=== PATIENT | female | born 1965 | race Caucasian/White ===

== ENCOUNTER 2016-09-25 12:09 | Day surgery (SDC) | payer MEDICAID ==
[2016-09-25] MEDS ORDERED: DIAZEPAM 5 MG TAB PO ONE (12:13)
[2016-09-25] MEDS ORDERED: NS 1,000 ML IV ONE (12:13)
[2016-09-25] MEDS ORDERED: FAMOTIDINE 20 MG TAB PO ONE (12:13)
[2016-09-25] MEDS ORDERED: diphenhydrAMINE 25 MG CAP PO ONE ×2 (12:13→12:21)
[2016-09-25] MEDS ORDERED: ASPIRIN EC 325 MG TAB PO ONE ×2 (12:13→12:21)
[2016-09-25] MEDS ORDERED: FAMOTIDINE 20 MG TAB ONE (12:21)
--- NOTE | 2016-09-25 12:26 | CPEKG ---
Heart Rate: 94 RR Interval: 638 P-R Interval: 176 QRSD Interval: 94 QT Interval: 344 QTC Interval: 431 P Foley: 68 QRS Foley: 15 T Wave Foley: 102 EKG Severity - ABNORMAL ECG - EKG Impression: SINUS RHYTHM EKG Impression: NONSPECIFIC T ABNORMALITIES, DIFFUSE LEADS Electronically Signed By: Mohamud De Oliveira 25-Sep-2016 16:12:34
[2016-09-25 12:46] LABS: % IMMATURE GRANULYOCYTES 0.2 % (0.0-1.1); ABSOLUTE IMMATURE GRANULOCYTES 0.01 10^3/uL (0.00-0.10); ADD DIFF? NO; ADD MORPH? NO; ADD SCAN? NO; ATYPICAL LYMPHOCYTE FLAG 20 (0-99); FRAGMENT RBC FLAG 10 (0-99); HEMATOCRIT 41.9 % (38.0-47.0); HEMOGLOBIN 14.6 g/dL (12.6-16.3); LEFT SHIFT FLG 0 (0-99); LIPEMIA HEMOLYSIS FLAG 90 (0-99); MEAN CELL HEMOGLOBIN 29.4 pg (27.9-34.1); MEAN CELL HEMOGLOBIN CONCENTR. 34.8 g/dL (32.4-36.7); MEAN CELL VOLUME 84.3 fL (81.5-99.8); PLATELET CLUMPS FLAG 20 (0-99); PLATELET COUNT 201 10^3/uL (150-400); RED BLOOD CELL COUNT 4.97 10^6/uL (4.18-5.33); RED CELL DISTRIBUTION WIDTH 12.8 % (11.5-15.2)
[2016-09-25 12:53] LABS: INR 0.99 (0.83-1.16)
[2016-09-25] MEDS ORDERED: LIDOCAINE 1% 300 MG/30 ML SDV ONE (12:53)
[2016-09-25] MEDS ORDERED: fentaNYL 100 MCG/2 ML INJ ONE (12:54)
[2016-09-25] MEDS ORDERED: MIDAZOLAM 2 MG/2 ML VIAL ONE ×2 (12:54→13:19)
[2016-09-25] MEDS ORDERED: IOPAMIDOL (ISOVUE-370) 150 ML BTL IV ONE (12:55)
[2016-09-25 13:01] LABS: ANION GAP 12 mEq/L (8-16); CALCIUM 9.8 mg/dL (8.5-10.4); CARBON DIOXIDE 24 mEq/l (22-31); CHLORIDE 107 mEq/L (97-110); CHOLESTEROL 198 mg/dL (140-200); CHOLESTEROL/HDL RATIO 1.96 RATIO (1.00-4.44); GLOMERULAR FILTRATION RATE 59; GLUCOSE 78 mg/dL (70-100); HIGH DENSITY LIPOPROTEIN 101 mg/dL (40-95); LDL/HDL RATIO 0.85 RATIO (1.00-3.22); LOW DENSITY LIPOPROTEIN 86 mg/dL (70-100); MAGNESIUM 1.7 mg/dL (1.6-2.3); NON-HIGH DENSITY LIPOPROTEIN 97 mg/dL (90-129); POTASSIUM 3.9 mEq/L (3.5-5.2); SODIUM 143 mEq/L (134-144); TRIGLYCERIDE 59 mg/dL (35-135); VERY LOW DENSITY LIPOPROTEINS 11 mg/dL (8-25)
[2016-09-25] MEDS ORDERED: ONDANSETRON 4 MG/2 ML VIAL ONE (14:23)
[2016-09-25] MEDS ORDERED: HYDROCODONE/APAP 5/325 TAB PO PRN (14:37)
[2016-09-25] MEDS ORDERED: NITROGLYCERIN 0.4 MG BTL SL PRN (14:37)
[2016-09-25] MEDS ORDERED: ATROPINE SULFATE 1 MG/10 ML SYR IVP PRN (14:37)
[2016-09-25] MEDS ORDERED: ONDANSETRON 4 MG/2 ML VIAL IVP PRN (14:37)
[2016-09-25] MEDS ORDERED: OXYCODONE/APAP 5/325 TAB PO PRN (14:37)
--- NOTE | 2016-09-25 14:42 | PDDXCAT ---
Diagnostic Cath Note - . Date: 09/25/16 Pipe Stem Sawyer: Lalitha Indication: CCC Class III and IV angina on medical treatment - Procedure Access: right groin Procedure: left heart catheterization, coronary angiography, left ventriculogram - Materials Left Heart Cath size: 6F Left Heart Cath materials: standard multipack (JL4, JR4, pigtail) - Findings-Left Heart Catheterization LM: short, bifurcating into the LAD and LCX vessels. No luminal irregularities were noted. LAD: Medium sized vessel with moderate, distal tortuosity. There was a mid LAD diagonal (principal) without luminal irregularities noted, but once again, tortuosity. LCX: Medium sized vessel with very small proximal OM and a large (principal) OM2 in the mid vessel. No luminal irregularities in the major vessels were noted. RCA: Medium to small diameter vessel. Dominant vessel with supply to the PDA. No luminal irregularities were noted. EDP: 18 mm Hg LVEF: 60% Wall motion: normal Complications: none Estimated blood loss: <50ml Closure method: manual pressure Assessment: 51 y/o female with complaints of chest pains. No luminal irregularities were noted to the major vessels. There was a very small OM1 with ostial disease noted - and this may contribute to some of the symptoms noted. This was not an intervenable lesion given diameter of the vessel (very small). Normal LVEF was noted with normal wall motion. Plan: Continued medical management is recommended. Would have the patient seen in the outpatient setting in one week for follow up. Intervention: none
== END 2016-09-25 18:00 | disposition home or self-care (01) ==
LOC: FCATH 12:09
PROVIDERS: ATTEND Internal Medicine Cardiovascular Disease
DX: I20.9 Angina pectoris, unspecified (principal); R94.31 Abnormal electrocardiogram [ECG] [EKG]
CPT/HCPCS: J1644; J2250; J2405; J3010; Q9967

== ENCOUNTER 2016-09-26 08:18 | Emergency (ER) | payer MEDICAID ==
--- NOTE | 2016-09-26 08:33 | EDPHY ---
H & P Stated Complaint: Agram yesterday with kidney pain Time Seen by Provider: 09/26/16 08:32 HPI/ROS: CHIEF COMPLAINT: Right flank pain following angiogram HISTORY OF PRESENT ILLNESS: The patient presents to the ED with right flank pain following angiogram yesterday. The patient contacted her beamer helper who recommended she come to the ED for evaluation of retroperitoneal hematoma. The patient reportedly has been using ibuprofen for intermittent chest pain over the past several weeks. The patient's angiogram yesterday demonstrated no evidence of significant coronary artery disease. The patient denies any hematuria. She denies focal numbness or weakness. The patient reports moderate pain in her right flank. The patient denies nausea, vomiting or fever. She denies dysuria. She denies additional complaints. REVIEW OF SYSTEMS: A comprehensive 10 point review of systems is otherwise negative aside from elements mentioned in the history of present illness. Source: Patient - Personal History LMP (Females 10-55): 22-28 Days Ago Current Tetanus/Diphtheria Vaccine: Yes Current Tetanus Diphtheria and Acellular Pertussis (TDAP): Yes - Medical/Surgical History Hx Asthma: Yes Hx Chronic Respiratory Disease: No Hx Diabetes: No Hx Cardiac Disease: No Hx Renal Disease: No Hx Cirrhosis: No Hx Alcoholism: No Hx HIV/AIDS: No Hx Splenectomy or Spleen Trauma: No Other PMH: asthma, depression, htn - Social History Smoking Status: Never smoked - Physical Exam Exam: General Appearance: Alert, no distress Eyes: Pupils equal and round no pallor or injection ENT, Mouth: Mucous membranes moist Respiratory: There are no retractions, lungs are clear to auscultation Cardiovascular: Regular rate and rhythm Gastrointestinal: Abdomen is soft and nontender, no masses, bowel sounds normal Neurological: A&O, normal motor function, normal sensory exam, normal cranial nerves Skin: Warm and dry, no rashes Musculoskeletal: Neck is supple nontender, tenderness to palpation throughout the lumbar sacral and thoracic paraspinal muscles. Patient has exquisite tenderness to even the lightest skin touch. Extremities: symmetrical, full range of motion Constitutional: Initial Vital Signs Temperature (C) 36.3 C 09/26/16 08:22 Heart Rate 90 09/26/16 08:22 Respiratory Rate 16 09/26/16 08:22 Blood Pressure 128/88 H 09/26/16 08:22 O2 Sat (%) 97 09/26/16 08:22 O2 Delivery Mode Room Air Allergies/Adverse Reactions: midazolam [From Versed] Allergy (Severe, Verified 09/25/16 12:41) diazepam [From Valium] Allergy (Verified 09/25/16 12:42) propofol Allergy (Verified 09/25/16 12:42) Home Medications: Medication Instructions Recorded LORAZEPAM 0.5 mg PO PRN PRN 09/25/16 Lisinopril/Hctz 20/12.5MG 20 mg PO DAILY 09/25/16 Ritalin 20mg (*) 20 mg PO DAILY 09/25/16 Wellbutrin 150mg XL 150 mg PO BID 09/25/16 Medical Decision Making - Diagnostics Imaging Results: Imaging Impressions Abdomen CT 09/26/16 09:42 Impression: 1. Mild stranding in the right groin consistent with expected hemorrhage from recent cardiac catheterization, with no significant hematoma and no retroperitoneal hemorrhage. 2. Mild degenerative change in lumbar spine. 3. Additional findings as above. Findings discussed with Darwin Zapien on September 26, 2016 at 11:05 a.m. ED Course/Re-evaluation: The patient presents to the ED with complaints of acute flank pain following an angiogram. The patient has tenderness to palpation in her right flank throughout the posterior thorax and lower lumbar area. There is no evidence of a rash. The patient's laboratory studies including creatinine and CBC are within normal limits. The patient was taken for CT scan of the abdomen pelvis with IV contrast to evaluate for retroperitoneal hemorrhage. The results of that study was normal. The patient's urine dipstick demonstrates no evidence of an infection or hematuria. At this point time I do feel the patient can safely be discharged home. She did undergo 3 serial examinations in the ED by myself over a 3 hour period. Differential Diagnosis: Differential diagnosis considered includes retroperitoneal hemorrhage, renal failure, nephrolithiasis, pyelonephritis, myofascial strain - Data Points Laboratory Results: Laboratory Results 09/26/16 08:50 09/26/16 08:50 09/26/16 09/26/16 08:50 08:50 WBC 8.51 10^3/uL 10^3/uL (3.80-9.50) RBC 5.02 10^6/uL 10^6/uL (4.18-5.33) Hgb 14.9 g/dL g/dL (12.6-16.3) Hct 43.2 % % (38.0-47.0) MCV 86.1 fL fL (81.5-99.8) MCH 29.7 pg pg (27.9-34.1) MCHC 34.5 g/dL g/dL (32.4-36.7) RDW 13.0 % % (11.5-15.2) Plt Count 191 10^3/uL 10^3/uL (150-400) MPV 10.8 fL fL (8.7-11.7) Neut % (Auto) 77.7 % H % (39.3-74.2) Lymph % (Auto) 12.7 % L % (15.0-45.0) [place] % (Auto) 7.2 % % (4.5-13.0) Eos % (Auto) 1.8 % % (0.6-7.6) Baso % (Auto) 0.2 % L % (0.3-1.7) Nucleat RBC Rel Count 0.0 % % (0.0-0.2) Absolute Neuts (auto) 6.62 10^3/uL H 10^3/uL (1.70-6.50) Absolute Lymphs (auto) 1.08 10^3/uL 10^3/uL (1.00-3.00) Absolute Monos (auto) 0.61 10^3/uL 10^3/uL (0.30-0.80) Absolute Eos (auto) 0.15 10^3/uL 10^3/uL (0.03-0.40) Absolute Basos (auto) 0.02 10^3/uL 10^3/uL (0.02-0.10) Absolute Nucleated RBC 0.00 10^3/uL 10^3/uL (0-0.01) Immature Gran % 0.4 % % (0.0-1.1) Immature Gran # 0.03 10^3/uL 10^3/uL (0.00-0.10) Sodium 138 mEq/L mEq/L (134-144) Potassium 4.2 mEq/L mEq/L (3.5-5.2) Chloride 104 mEq/L mEq/L (97-110) Carbon Dioxide 25 mEq/l mEq/l (22-31) Anion Gap 9 mEq/L mEq/L (8-16) BUN 14 mg/dL mg/dL (7-23) Creatinine 0.8 mg/dL mg/dL (0.6-1.0) Estimated GFR > 60 Glucose 94 mg/dL mg/dL (70-100) Calcium 9.2 mg/dL mg/dL (8.5-10.4) Departure - Departure Disposition: Home, Routine, Self-Care Clinical Impression: Acute flank pain Condition: Good Instructions: Musculoskeletal Pain (ED) Additional Instructions: 1. Your CT scan, laboratory testing and workup in the emergency department demonstrates no evidence of a kidney problem, hemorrhage, renal failure or other serious condition. 2. Tylenol as needed for pain. 3. Please follow up as scheduled with your primary care provider. Referrals: WALDEMAR LOMAX [Other] - As per Instructions
[2016-09-26 09:13] LABS: % IMMATURE GRANULYOCYTES 0.4 % (0.0-1.1); ABSOLUTE IMMATURE GRANULOCYTES 0.03 10^3/uL (0.00-0.10); ADD DIFF? NO; ADD MORPH? NO; ADD SCAN? NO; ATYPICAL LYMPHOCYTE FLAG 0 (0-99); FRAGMENT RBC FLAG 0 (0-99); HEMATOCRIT 43.2 % (38.0-47.0); HEMOGLOBIN 14.9 g/dL (12.6-16.3); LEFT SHIFT FLG 10 (0-99); LIPEMIA HEMOLYSIS FLAG 90 (0-99); MEAN CELL HEMOGLOBIN 29.7 pg (27.9-34.1); MEAN CELL HEMOGLOBIN CONCENTR. 34.5 g/dL (32.4-36.7); MEAN CELL VOLUME 86.1 fL (81.5-99.8); MEAN PLATELET VOLUME 10.8 fL (8.7-11.7); PLATELET CLUMPS FLAG 10 (0-99); PLATELET COUNT 191 10^3/uL (150-400); RED BLOOD CELL COUNT 5.02 10^6/uL (4.18-5.33)
[2016-09-26 09:35] LABS: ANION GAP 9 mEq/L (8-16); CALCIUM 9.2 mg/dL (8.5-10.4); CARBON DIOXIDE 25 mEq/l (22-31); CHLORIDE 104 mEq/L (97-110); CREATININE 0.8 mg/dL (0.6-1.0); GLOMERULAR FILTRATION RATE > 60; GLUCOSE 94 mg/dL (70-100); POTASSIUM 4.2 mEq/L (3.5-5.2); SODIUM 138 mEq/L (134-144)
[2016-09-26] MEDS ORDERED: IOPAMIDOL (ISOVUE-300) 100 ML BTL ONE (10:11)
[2016-09-26 10:31] VITALS: O2SAT 99
[2016-09-26 11:52] VITALS: BP 105/76; PULSE 72; RESP 16; TEMP 99
== END 2016-09-26 11:50 | disposition home or self-care (01) ==
DX: R10.9 Unspecified abdominal pain (principal); I10 Essential (primary) hypertension; J45.909 Unspecified asthma, uncomplicated
CPT/HCPCS: Q9967

== ENCOUNTER 2018-05-29 10:35 | Emergency (ER) | payer MEDICAID, OTHER ==
--- NOTE | 2018-05-29 11:00 | EDPHY ---
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 She was seen at [facility] emergency department yesterday with negative ultrasound and x-ray. She is provided Ming wrap and crutches. She was given a prescription for [place] but states that she prefers not to take this due to the altered mentation. At the ER yesterday they did not have a working MRI at that time which she was told to get follow- up. She contacted orthopedics in next available follow-up was 1 month out. She comes to the emergency department complaining of continued pain and stability left knee, interested in MRI in order to expedite orthopedic follow- up care. PHYSICAL EXAM (Prior to examination, patient consented to physical exam, hands were washed and my usual and customary physical exam procedures followed) 1) GENERAL: Well-developed, well-nourished, alert and oriented. Appears to be in no acute distress. 2) HEAD: Normocephalic 3) HEENT: Pupils equal, round, reactive to light bilaterally. 4) LUNGS: Breathing comfortably. 5) MUSCULOSKELETAL: Exam of the left knee shows no soft tissue swelling. Focally tender to palpation left medial knee reproducible with palpation range of motion. No gross instability. . Compartments are soft. 6) SKIN: Intact 7) VASCULAR: DP,PT pulses and cap refill present and brisk distally DIFFERENTIAL DIAGNOSIS: in no particular order including but not limited to fracture, sprain, compartment syndrome, septic arthritis, DVT (Brittani Silva) Constitutional: Initial Vital Signs Temperature (C) 36.5 C 05/29/18 10:39 Heart Rate 76 05/29/18 10:39 Respiratory Rate 18 05/29/18 10:39 Blood Pressure 140/80 H 05/29/18 10:39 O2 Sat (%) 97 05/29/18 10:39 O2 Delivery Mode Room Air Allergies/Adverse Reactions: midazolam [From Versed] Allergy (Severe, Verified 09/25/16 12:41) acetaminophen [From Vicodin] Allergy (Verified 05/29/18 10:38) diazepam [From Valium] Allergy (Verified 09/25/16 12:42) hydrocodone [From Vicodin] Allergy (Verified 05/29/18 10:38) propofol Allergy (Verified 09/25/16 12:42) Home Medications: Medication Instructions Recorded LORAZEPAM 0.5 mg PO PRN PRN 09/25/16 Lisinopril/Hctz 20/12.5MG 20 mg PO DAILY 09/25/16 Ritalin 20mg (*) 20 mg PO DAILY 09/25/16 Wellbutrin 150mg XL 150 mg PO BID 09/25/16 MDM/Departure - MDM Procedures: Procedure: Splint A knee immobilizer splint was applied by ER technician helper instrument. After application of the splint I returned and re-examined the patient. The splint was adequately immobilizing the joint and distal to the splint the patient's circulation and sensation were intact. Patient shows no signs of compartment syndrome. Was given orthopedic precautions. Patient has her own pre-hospital crutches and I have observed her crutch walking with success. (Brittani Silva) ED Course/Re-evaluation: I did not see this patient while she was in the emergency department. However her care was discussed with the PA while the patient was in the department. I agree with treatment plan and management (Mohamud Easley) 10:57 a.m.: I have evaluated this patient. She has focal tenderness to palpation left medial knee. She reports negative ultrasound and negative x-ray performed yesterday at [facility]. She informs me that she is a single mother and has a window of time today (Thursday) where she can be evaluated and have an MRI. I have agreed to perform an MRI of the left knee today for acute left knee pain with instability.. She has been informed however for that her MRI may not be fully her insurance company and that the MRI may not be read today by musculoskeletal fellowship trained radiologist. She is agreeable with this and wishes to proceed. She will plan on following up with JULIA Lassiter at the [facility] on Thursday and we will get the MRI today to expedite her orthopedic follow-up care. 12:02 p.m.: Patient has back from MRI. At this time I think the patient can be discharged. The results of the MRI are pending. I was informed by scheme technician that the musculoskeletal radiologist will not be reading MRIs until Thursday (today is Thursday). I think the patient can be discharged at this time, . Initial evaluation by staff radiologist shows a probable medial meniscus tear. I discussed this with the patient. Stressed orthopedic follow-up (Brittani Silva) - Depart Disposition: Home, Routine, Self-Care Clinical Impression: Left medial knee pain Condition: Good Instructions: Knee Pain (ED) Additional Instructions: I will call you later today with the initial results of your MRI. Please plan on [facility] and with Orthopedics. Referrals: Izzy Lassiter PA [Primary Care Provider] - 05/31/18 Jose Manuel Reaves MD [Medical Doctor] - 2-3 days, call for appt. (Dr. Jose Manuel Reaves is orthopedic surgeon)
[2018-05-29 12:21] VITALS: BP 127/87
== END 2018-05-29 12:20 | disposition home or self-care (01) ==
DX: M25.562 Pain in left knee (principal)

== ENCOUNTER 2018-08-01 09:27 | Emergency (ER) | payer MEDICAID ==
--- NOTE | 2018-08-01 09:30 | EDPHY ---
H & P Time Seen by Provider: 08/01/18 09:29 HPI/ROS: HPI: This is a 53-year-old female who presents with Chief Complaint: L knee meniscus Sx 6D [employer], swelling/streaking/pain. Location: Left knee Quality: Swelling, pain Duration: 3-4 days Signs and Symptoms: No bleeding, no radiation, no numbness, no weakness, no tingling, no incontinence, + decreased range of motion, + swelling, + pain, no fever Timing: Gradual onset Severity: 06/23 Context: Patient had a left knee meniscus repair performed by Dr. Knight on Thursday. Is in an ACL brace with postsurgical precautions of full extension and no flexion. She reports for the last several days she has had anterior knee pain associated with mild swelling. She has felt chilled. She denies any fevers, nausea, vomiting, radiation, weakness. She does not take hormone replacement. Nonsmoker. Modifying Factors: Regular pain medications. Comment: ROS: A comprehensive 10 system review of systems is otherwise negative aside from elements mentioned in the history of present illness. MEDICAL/SURGICAL/SOCIAL HISTORY: Medical history: Asthma, depression, hypertension Surgical history: Denies Social history: . Nonsmoker. CONSTITUTIONAL: Overweight, anxious, middle-aged white female, awake and alert , no obvious distress HEENT: Atraumatic and normocephalic. NECK: supple, no midline tenderness, flexion 45 degrees, extension 45 degrees, right and left lateral flexion 45 degrees. Cardiovascular: Normal S1/S2, regular rate, regular rhythm, without murmur rub or gallop. PULMONARY/CHEST: Symmetrical and nontender. Clear to auscultation bilaterally. Good air movement. No accessory muscle usage. ABDOMEN: Soft, nondistended, nontender. EXTREMITIES: 2/2 pedal pulses, strength 5/5, left KNEE: 3 laparoscopic portal sites noted in usual area with portal suture stitches in place and no surrounding erythema, induration, discharge. Mild effusion, no medial and lateral joint line tenderness, full extension to 180, flexion not obtain due to meniscus repair limitations status post surgery. Mild positive Homans sign. Left calf slightly larger than right calf. DIP/PIP/MCP flexion/extension intact with good light touch sensation. no deformities, no clubbing, no cyanosis , no edema. Bilateral feet warm to touch. NEUROLOGICAL: no focal neuro deficits. GCS 15. Light touch sensation intact. SKIN: Warm and dry, no erythema. no rash. Good capillary refill. Source: Patient Exam Limitations: No limitations - Medical/Surgical History Hx Asthma: Yes Hx Chronic Respiratory Disease: No Hx Diabetes: No Hx Cardiac Disease: No Hx Renal Disease: No Hx Cirrhosis: No Hx Alcoholism: No Hx HIV/AIDS: No Hx Splenectomy or Spleen Trauma: No Other PMH: asthma, depression, htn - Social History Smoking Status: Never smoked Constitutional: Initial Vital Signs Temperature (C) 36.5 C 08/01/18 09:31 Heart Rate 88 08/01/18 09:31 Respiratory Rate 18 08/01/18 09:31 Blood Pressure 131/105 H 08/01/18 09:31 O2 Sat (%) 95 08/01/18 09:31 O2 Delivery Mode Room Air Allergies/Adverse Reactions: midazolam [From Versed] Allergy (Severe, Verified 08/01/18 09:31) acetaminophen [From Vicodin] Allergy (Verified 08/01/18 09:31) diazepam [From Valium] Allergy (Verified 08/01/18 09:31) hydrocodone [From Vicodin] Allergy (Verified 08/01/18 09:31) propofol Allergy (Verified 09/25/16 12:42) Home Medications: Medication Instructions Recorded LORAZEPAM 0.5 mg PO PRN PRN 09/25/16 Lisinopril/Hctz 20/12.5MG 20 mg PO DAILY 09/25/16 Ritalin 20mg (*) 20 mg PO DAILY 09/25/16 Wellbutrin 150mg XL 150 mg PO BID 09/25/16 Apixaban [Eliquis 30-day Starter 1 kit PO AD #1 kit 08/01/18 Pack (PE/DVT treatment)] Medical Decision Making - Diagnostics Imaging Results: Imaging Impressions Extremity Venous Study 08/01/18 09:41 Impression: DVT in the peroneal veins of the distal calf. Findings discussed with Susan Arce 08/01/2018 at 11:01. ED Course/Re-evaluation: Vital signs reviewed and stable upon arrival. Left lower extremity ultrasound ordered to evaluate for DVT, hematoma, seroma No signs of neurovascular compromise/tenting of skin/compartment syndrome/ extremities and joints examined above and below area of concern and are neurovascularly intact/septic arthritis. 1100: Called by radiologist, Dr. Schmitt, that left lower extremity ultrasound shows very short-segment of DVT in the distal perennial arch vein. Given Eliquis in the ER and started pack. Patient understands that she is to follow up with her primary care/orthopedics and will need a minimum of 2 months more of Eliquis. This patient was seen under the supervision of my secondary supervising physician. I evaluated and cared for this patient with attending. Differential Diagnosis: Leg swelling including but not limited to hypoalbuminemia, congestive heart failure, cor pulmonale, chronic venous stasis and DVT. - Data Points Medications Given: Discontinued Medications Apixaban (Eliquis) 10 mg PO EDNOW ONE Stop: 08/01/18 11:06 Last Admin: 08/01/18 11:15 Dose: 10 mg Departure - Departure Disposition: Home, Routine, Self-Care Clinical Impression: Status post arthroscopic knee surgery, Acute thromboembolism of left peroneal vein Condition: Good Instructions: Deep Vein Thrombosis (ED), Precautions after Total Joint Replacement Surgery (ED) Additional Instructions: Take Tylenol 650 mg every 4 hours and/or Ibuprofen 600 mg every 8 hours with food as needed for pain. Apply ice for 30 minutes at a time; 3 times per day for the next 2 days. Elevate left lower extremity as needed to decrease swelling. Take Eliquis as directed. You have been given a 30 day starter pack from the emergency room and will require another 2 months at a minimum. Keep follow-up appointment with Orthopedics as previously scheduled. Referrals: Izzy Lassiter PA [Primary Care Provider] - As per Instructions Samy Knight MD [Medical Doctor] - As per Instructions Prescriptions: Apixaban [Eliquis 30-day Starter Pack (PE/DVT treatment)] 1 kit PO AD #1 kit
[2018-08-01] MEDS ORDERED: APIXABAN 5 MG TAB PO ONE (11:05)
[2018-08-01 11:48] VITALS: BP 143/95
== END 2018-08-01 11:49 | disposition home or self-care (01) ==
DX: I82.492 Acute embolism and thrombosis of other specified deep vein of left lower extremity (principal); J45.909 Unspecified asthma, uncomplicated; F32.9 Major depressive disorder, single episode, unspecified; I10 Essential (primary) hypertension; Z98.890 Other specified postprocedural states

== ENCOUNTER 2018-08-04 21:37 | Emergency (ER) | payer MEDICAID ==
[2018-08-04 21:49] VITALS: BP 142/103
--- NOTE | 2018-08-04 22:09 | EDPHY ---
H & P Stated Complaint: Dx with DVT in LLE s/p knee surgery increased edema to foot/ ankle tonight Time Seen by Provider: 08/04/18 21:39 HPI/ROS: Chief Complaint: Leg swelling HPI: 53-year-old woman he had left knee surgery about 9 days ago. Patient was seen here 3 days ago with leg swelling. She was diagnosed with peroneal DVT. She was started on Eliquis. Patient did follow up with primary care physician today who switched her to a different NOAC. This evening she came home and took down her Ming bandage noticed increasing swelling in her left foot and became concerned. She says she has been keeping it elevated for most of the day but not all the time. No chest pain or shortness of breath. No increasing pain. No fevers or chills. No streaking up her leg. She says that since keeping it elevated for the last hour so the swelling has gone down and now looks like it did when she presented to the emergency department. ROS: 10 systems were reviewed and were negative except those elements noted in the HPI. PMH: Left knee surgery, DVT Social History: No smoking, no alcohol, no recreational drug use Family History: non-contributory Physical Exam: Gen: Awake, Alert, No Distress HEENT: Nose: no rhinorrhea Eyes: PERRLA, EOMI Mouth: Moist mucosa Neck: Supple, no JVD Back: no CVA tenderness, no midline tenderness Ext: Mild left calf edema, non-tender, no erythema, incisions intact. Skin: no rash Neuro: CN II-XII intact, Sensation grossly intact, Strength 5/5 in bilateral upper and lower extremities - Medical/Surgical History Hx Asthma: Yes Hx Chronic Respiratory Disease: No Hx Diabetes: No Hx Cardiac Disease: No Hx Renal Disease: No Hx Cirrhosis: No Hx Alcoholism: No Hx HIV/AIDS: No Hx Splenectomy or Spleen Trauma: No Other PMH: asthma, depression, htn, knee surgery - Social History Smoking Status: Never smoked Constitutional: Initial Vital Signs Temperature (C) 36.5 C 08/04/18 21:45 Heart Rate 91 08/04/18 21:45 Respiratory Rate 16 08/04/18 21:45 Blood Pressure 142/103 H 08/04/18 21:45 O2 Sat (%) 94 08/04/18 21:45 O2 Delivery Mode Room Air Allergies/Adverse Reactions: midazolam [From Versed] Allergy (Severe, Verified 08/01/18 09:31) acetaminophen [From Vicodin] Allergy (Verified 08/01/18 09:31) diazepam [From Valium] Allergy (Verified 08/01/18 09:31) hydrocodone [From Vicodin] Allergy (Verified 08/01/18 09:31) propofol Allergy (Verified 09/25/16 12:42) Home Medications: Medication Instructions Recorded LORAZEPAM 0.5 mg PO PRN PRN 09/25/16 Lisinopril/Hctz 20/12.5MG 20 mg PO DAILY 09/25/16 Ritalin 20mg (*) 20 mg PO DAILY 09/25/16 Wellbutrin 150mg XL 150 mg PO BID 09/25/16 Xarelto 08/04/18 Medical Decision Making ED Course/Re-evaluation: Patient presenting with left foot swelling status post recent diagnosis of left leg DVT after knee surgery. She is on anticoagulation. Extremity appears now as it did upon diagnosis. She has no significant edema. No erythema. Nothing suggest infection. There is nothing to suggest propagation of the DVT. Patient has normal oxygenation. No shortness of breath. No chest pain. No fevers or chills. Incisions look intact. No evidence of infection. Patient states she was very anxious after discharge because she was where the risks of PE after DVT. She only has a [id number] DVT and I explained to her that the likelihood of propagation on anticoagulations extremely low. Patient has been reassured. I have encouraged to return for any concerns. She will follow up with primary care physician or orthopedic surgeon. I do not feel further imaging or treatment is indicated at this time. Departure - Departure Disposition: Home, Routine, Self-Care Clinical Impression: DVT (deep venous thrombosis) Condition: Good Instructions: Deep Vein Thrombosis (ED) Additional Instructions: Follow up with primary care physician in 2-3 days for further evaluation. Return to the emergency department for worsening swelling, worsening pain, redness, fevers, or any other concerns. Referrals: Izzy Lassiter PA [Primary Care Provider] - As per Instructions
== END 2018-08-04 22:24 | disposition home or self-care (01) ==
DX: I82.492 Acute embolism and thrombosis of other specified deep vein of left lower extremity (principal); I10 Essential (primary) hypertension; F32.9 Major depressive disorder, single episode, unspecified; J45.909 Unspecified asthma, uncomplicated; Z79.01 Long term (current) use of anticoagulants